=== PATIENT | female | born 1995 | race Caucasian/White ===

== ENCOUNTER 2016-09-13 19:47 | Emergency (ER) | payer OTHER ==
[2016-09-13 20:02] VITALS: RESP 18; O2SAT 100
[2016-09-13 20:16] LABS: COLOR YELLOW; LEUKOCYTE ESTERASE,URINE NEGATIVE (NEGATIVE); NITRITE,URINE POSITIVE (NEGATIVE)
[2016-09-13 20:40] LABS: BACTERIA 2+ /hpf (NONE SEEN); MUCUS TRACE /lpf (NONE-1+); WBC,URINE 50-182 /hpf (0-3)
--- NOTE | 2016-09-13 22:13 | UCPHY ---
H & P Time Seen by Provider: 09/13/16 20:36 Patient Type: New HPI/ROS: HPI Right flank pain, lower abdominal discomfort. 20-year-old female by private vehicle with her boyfriend. She complains of lower abdominal discomfort which she describes as across her lower abdomen and through her suprapubic region, crampy in nature since and right flank area pain for the last 24 hours. She denies urinary complaints. No increased frequency with urination. No burning or discomfort with urination. No hematuria. She has not had a fever. She has had some nausea but no vomiting. ROS: Constitutional: No fever, no chills. No weakness. Eyes: No discharge. No changes in vision. ENT: No sore throat. No nasal congestion or rhinorrhea. Respiratory: No cough. No shortness of breath. Cardiac: No chest pain, no palpitations. Gastrointestinal: As above, no vomiting, no diarrhea. Genitourinary: No hematuria. No dysuria or increased frequency with urination. Musculoskeletal: As above. No neck pain. No myalgias or arthralgias. Skin: No rashes. Neurological: No headache. No focal weakness or altered sensation. Past medical history: No significant past medical history. Social history: Nonsmoker. Here with her boyfriend. Physical Exam: General Appearance: Alert, no distress. This patient is responding to questions appropriately and in full sentences. This patient appears well- hydrated and well-nourished. Eyes: Pupils equal and round no pallor or injection. No lid edema, erythema or injection. Gastrointestinal: Abdomen is soft with vague lower abdominal tenderness on palpation and suprapubic discomfort, no masses, bowel sounds normal. No focal tenderness at McBurney's point. No Delong sign. Neurological: Motor sensory function is grossly intact. Cranial nerves are normal. Gait is normal. Skin: Warm and dry, no rashes. Musculoskeletal: Mild right-sided CVA tenderness on palpation. No left-sided CVA tenderness. Extremities are symmetrical. All joints range without pain or impingement. Psychiatric: No agitation. No depression. Database: EKG: Imaging: Procedures: Emergency department course: After my evaluation, I discussed results of her urinalysis which indicate urinary tract infection and secondary to right flank pain likely pyelonephritis. Her vital signs have been reviewed and are normal. Repeated Abdominal exam she is soft, nontender nondistended. I feel that a surgical etiology of her presentation is unlikely. She was given 1 g of IV Rocephin in the emergency department. She will be prescribed Keflex for treatment of UTI/ pyelonephritis over the next 7 days. She feels comfortable going home with her boyfriend. Follow-up and return to emergency department precautions reviewed. All of her questions were answered. She was discharged in good condition. Differential Diagnosis: The differential diagnosis on this patient includes but is not limited to urinary tract infection, pyelonephritis. Appendicitis, ureterolithiasis, cholecystitis, other surgical etiology unlikely. This represents a partial list of diagnoses considered. These considerations are based on history, physical exam, past history, reassessment and diagnostic testing. Smoking Status: Never smoked Constitutional: Initial Vital Signs Temperature (C) 36.6 C 09/13/16 20:00 Heart Rate 71 09/13/16 20:00 Respiratory Rate 18 09/13/16 20:00 Blood Pressure 109/58 L 09/13/16 20:00 O2 Sat (%) 100 09/13/16 20:00 O2 Delivery Mode Room Air Allergies/Adverse Reactions: No Known Allergies Allergy (Unverified 09/14/14 21:34) Home Medications: Medication Instructions Recorded Norgestimate-Ethinyl Estradiol 1 each PO DAILY 09/14/14 [Trinessa Tablet] Cephalexin [Keflex (*)] 500 mg PO Q6 7 Days 09/13/16 Medical Decision Making - Data Points Medications Given: Discontinued Medications Hydrocodone Bitart/Acetaminophen ([place] 5/325mg Prepack#6) 1 btl TAKEHOME EDNOW ONE Stop: 09/13/16 23:14 Last Admin: 09/13/16 23:15 Dose: 1 btl Cephalexin (Keflex 500 Mg Prepack#4) 1 btl TAKEHOME EDNOW ONE PRN Reason: Protocol Stop: 09/13/16 22:18 Last Admin: 09/13/16 23:16 Dose: 1 btl Ceftriaxone Sodium 1 gm/ (Sodium Chloride) 100 mls @ 200 mls/hr IV EDNOW ONE PRN Reason: Protocol Stop: 09/13/16 22:40 Last Admin: 09/13/16 22:25 Dose: 100 mls Ondansetron HCl (Zofran) 4 mg IVP EDNOW ONE Stop: 09/13/16 22:21 Last Admin: 09/13/16 22:22 Dose: 4 mg Ondansetron HCl (Zofran Odt 4 Mg Prepack#2) 1 btl TAKEHOME EDNOW ONE Stop: 09/13/16 23:14 Last Admin: 09/13/16 23:15 Dose: 1 btl Departure - Departure Disposition: Home, Routine, Self-Care Clinical Impression: Urinary tract infection, Pyelonephritis Condition: Good Instructions: Urinary Tract Infection in Women (ED), Kidney Infection (ED) Additional Instructions: Read and follow provided instructions. Follow-up with your primary care physician in 1-2 days for re-evaluation. Take medication as prescribed through entire course of treatment. Return to the emergency department for worsening pain, fever, vomiting or other serious concerns. Referrals: NONE *PRIMARY CARE P,. [Primary Care Provider] - As per Instructions Prescriptions: Cephalexin [Keflex (*)] 500 mg PO Q6 7 Days - PQRS PQRS Measurement: Not applicable.
[2016-09-13] MEDS ORDERED: cefTRIAXone 1 GM VIAL ONE (22:17)
[2016-09-13] MEDS ORDERED: NS 100 ML BAG (MINI-BAG) IV ONE (22:17)
[2016-09-13] MEDS ORDERED: CEPHALEXIN 500MG PREPACK#4 BTL TAKEHOME ONE (22:17)
[2016-09-13] MEDS ORDERED: ONDANSETRON 4 MG/2 ML VIAL IVP ONE (22:20)
[2016-09-13] MEDS ORDERED: ONDANSETRON 4 MG/2 ML VIAL ONE (22:22)
[2016-09-13] MEDS ORDERED: ONDANSETRON 4MG PREPACK#2 BTL TAKEHOME ONE ×2 (22:22→23:13)
[2016-09-13] MEDS ORDERED: HYDROCOD/APAP 5/325 PREPACK#6 BTL TAKEHOME ONE ×2 (23:04→23:13)
[2016-09-13 23:18] VITALS: BP 108/72; PULSE 70; TEMP 97.7
== END 2016-09-13 23:17 | disposition home or self-care (01) ==
LOC: CED 19:47
DX: N39.0 Urinary tract infection, site not specified (principal); N10 Acute pyelonephritis
CPT/HCPCS: 81003-PO; 81015-PO; 96365-PO; 96375-PO; G0463-PO; J0696; J2405